=== PATIENT | male | born 1955 | race Two or more races ===

== ENCOUNTER → 2017-06-01 | Outpatient (CLI) | payer BC ==
[2017-06-01 16:54] LABS: AMPHETAMINE/METHAMPHETAMINE NEG (NEG); BARBITURATES NEG (NEG); BENZODIAZEPINES NEG (NEG); CANNABINOIDS POS (NEG); COCAINE NEG (NEG); ETHANOL, URINE NEG (NEG); METHADONE NEG (NEG); OPIATES POS (NEG); PHENCYCLIDINE NEG (NEG)
== END | disposition home or self-care (01) ==
LOC: LAB 16:23
DX: F11.90 Opioid use, unspecified, uncomplicated (principal)
CPT/HCPCS: 80307